=== PATIENT | male | born 1985 | race Two or more races ===

== ENCOUNTER 2025-04-17 13:48 | Emergency (ER) | payer MEDICAID, OTHER ==
[~2025-04-17] VITALS: Ht 180.3 cm; Wt 95.9 kg
[2025-04-17 13:52] VITALS: BP 133/53; PULSE 78; RESP 20; TEMP 97.3; O2SAT 96
== END 2025-04-17 15:00 | disposition left against medical advice (07) ==
LOC: ER 13:48
DX: S61.051A Open bite of right thumb without damage to nail, initial encounter (principal); Z53.21 Procedure and treatment not carried out due to patient leaving prior to being seen by health care provider; W54.0XXA Bitten by dog, initial encounter; Y93.89 Activity, other specified; Y92.89 Other specified places as the place of occurrence of the external cause; Y99.8 Other external cause status